=== PATIENT | female | born 1995 | race American Indian/Alaskan Native ===

== ENCOUNTER 2019-07-28 10:21 | Outpatient (CLI) | payer BC | END 2019-07-28 10:22 | disposition home or self-care (01) | LOC: LAB 10:21 | PROVIDERS: ATTEND Obstetrics & Gynecology | DX: Z01.419 Encounter for gynecological examination (general) (routine) without abnormal findings (principal); A64 Unspecified sexually transmitted disease | CPT/HCPCS: 36415 ==